=== PATIENT | male | born 1950 | race Caucasian/White ===

== ENCOUNTER 2017-05-20 02:39 | Emergency (ER) | payer MEDICAID, MEDICARE, OTHER ==
--- NOTE | 2017-05-20 03:21 | EDM.PDOC ---
<Lori Gilbert - Last Filed: 05/20/17 03:53> ED HPI GENERAL MEDICAL PROBLEM - General Chief Complaint: Gastrointestinal Problem Stated Complaint: CHEST PAIN Time Seen by Provider: 05/20/17 03:16 Source of Information: Reports: Patient, Family History Limitations: Reports: No Limitations - History of Present Illness INITIAL COMMENTS - FREE TEXT/NARRATIVE: pt arrived with a history of heartburn at about 4 thirty this afternoon. He took tums nd fenditamine He did get relief with that. He woke up about 2 am nd it had reoccurred. He repeated the meds and he arrived pain free. Onset: Today Duration: Hour(s):, Other ( Pt has had heartburn for several hours on and off. He normally is on no meds. ) Location: Reports: Chest, Abdomen Associated Symptoms: Reports: Other ( heartburn. ) denies Pain Score (Numeric/FACES): 0 - Related Data Allergies Allergy/AdvReac Type Severity Reaction Status Date / Time No Known Allergies Allergy Verified 05/20/17 02:55 Home Meds: Home Meds NK [No Known Home Meds] 05/20/17 [History] Past Medical History Gastrointestinal History: Reports: Other (See Below) Other Gastrointestinal History: IBS Musculoskeletal History: Reports: Osteoarthritis - Past Surgical History HEENT Surgical History: Reports: ROWENAIK GI Surgical History: Reports: Other (See Below) Other GI Surgeries/Procedures: tramatic umbilical hernia repair Social & Family History - Tobacco Use Smoking Status *Q: Never Smoker Second Hand Smoke Exposure: No - Caffeine Use Caffeine Use: Reports: Soda, Tea - Alcohol Use Days Per Week of Alcohol Use: 2 Number of Drinks Per Day: 1 Total Drinks Per Week: 2 - Recreational Drug Use Recreational Drug Use: No ED ROS GENERAL - Review of Systems Review Of Systems: See Below Constitutional: Reports: No Symptoms HEENT: Reports: No Symptoms Respiratory: Reports: No Symptoms Cardiovascular: Reports: No Symptoms Endocrine: Reports: No Symptoms GI/Abdominal: Reports: Abdominal Pain, Other ( hearturn type pain) : Reports: No Symptoms Musculoskeletal: Reports: No Symptoms ED EXAM, GI/ABD - Physical Exam Exam: See Below Text/Narrative:: Pt is pain free at this time. He has had pain in the upper abdoman extending to the chest. He did get sweaty. Exam Limited By: No Limitations General Appearance: Alert, Anxious Ears: Normal TMs Nose: Normal Inspection Throat/Mouth: Normal Inspection Head: Atraumatic Neck: Normal Inspection Respiratory/Chest: No Respiratory Distress Cardiovascular: Regular Rate, Rhythm, Other (pt is painfree at this time. ) GI/Abdominal Exam: Soft, Non-Tender (Male) Exam: Normal Inspection Rectal (Males) Exam: Deferred Back Exam: Normal Inspection Extremities: Normal Inspection Neurological: Alert, Oriented, Normal Cognition Course - Vital Signs Last Recorded V/S: Last Vital Signs Temp 98.1 F 05/20/17 07:26 Pulse 77 05/20/17 07:26 Resp 20 05/20/17 07:26 BP 172/102 H 05/20/17 07:26 Pulse Ox 95 05/20/17 07:26 - Orders/Labs/Meds Orders: Active Orders 24 hr Category Date Time Status EKG Documentation Completion [RC] ASDIRECTED Care 05/20/17 02:56 Active EKG Documentation Completion [RC] ASDIRECTED Care 05/20/17 07:39 Active Chest 1V Frontal [CR] Stat Exams 05/20/17 03:02 Taken Heparin Sodium/D5W [Heparin 25,000 Units in D5W 500 ML] Med 05/20/17 07:45 Active 25,000 units in 500 ml IV TITRATE Sodium Chloride 0.9% [Saline Flush] Med 05/20/17 03:48 Active 10 ml FLUSH ASDIRECTED PRN Saline Lock Insert [OM.PC] Routine Oth 05/20/17 03:48 Ordered EKG 12 Lead [EK] Routine Ther 05/20/17 02:56 Ordered EKG 12 Lead [EK] Routine Ther 05/20/17 07:39 Ordered Medication Orders Heparin Sodium/Dextrose (Heparin 25,000 Units In D5w 500 Ml) 25,000 units in 500 mls @ 20 mls/hr IV TITRATE RACHEL; 1,000 UNITS/HR PRN Reason: Protocol Last Admin: 05/20/17 07:48 Dose: 1,000 units/hr, 20 mls/hr Sodium Chloride (Saline Flush) 10 ml FLUSH ASDIRECTED PRN PRN Reason: Keep Vein Open Last Admin: 05/20/17 03:56 Dose: 10 ml Labs: Laboratory Tests 05/20/17 05/20/17 05/20/17 Range/Units 02:55 02:55 02:55 WBC 8.1 (4.5-11.0) K/uL RBC 4.45 (4.30-5.90) M/uL Hgb 14.7 (12.0-15.0) g/dL Hct 42.5 (40.0-54.0) % MCV 96 (80-98) fL MCH 33 H (27-31) pg MCHC 35 (32-36) % Plt Count 218 (150-400) K/uL Neut % (Auto) 38 (36-66) % Lymph % (Auto) 47 H (24-44) % Nuckolls % (Auto) 12 H (2-6) % Eos % (Auto) 2 (2-4) % Baso % (Auto) 1 (0-1) % Sodium 141 (140-148) mmol/L Potassium 4.0 (3.6-5.2) mmol/L Chloride 103 (100-108) mmol/L Carbon Dioxide 29 (21-32) mmol/L Anion Gap 8.8 (5.0-14.0) mmol/L BUN 21 H (7-18) mg/dL Creatinine 1.1 (0.8-1.3) mg/dL Est Cr Clr Drug Dosing 74.46 mL/min Estimated GFR (MDRD) > 60 (>60) Glucose 141 H (74-106) mg/dL Calcium 9.3 (8.5-10.1) mg/dL Total Bilirubin 0.5 (0.2-1.0) mg/dL AST 20 (15-37) U/L ALT 44 (12-78) U/L Alkaline Phosphatase 61 (46-116) U/L Creatine Kinase (39-308) U/L Troponin I 0.054 (0.000-0.056) ng/mL Total Protein 7.1 (6.4-8.2) g/dL Albumin 3.6 (3.4-5.0) g/dL Globulin 3.5 (2.3-3.5) g/dL Albumin/Globulin Ratio 1.0 L (1.2-2.2) 05/20/17 05/20/17 Range/Units 02:55 03:52 WBC (4.5-11.0) K/uL RBC (4.30-5.90) M/uL Hgb (12.0-15.0) g/dL Hct (40.0-54.0) % MCV (80-98) fL MCH (27-31) pg MCHC (32-36) % Plt Count (150-400) K/uL Neut % (Auto) (36-66) % Lymph % (Auto) (24-44) % Nuckolls % (Auto) (2-6) % Eos % (Auto) (2-4) % Baso % (Auto) (0-1) % Sodium (140-148) mmol/L Potassium (3.6-5.2) mmol/L Chloride (100-108) mmol/L Carbon Dioxide (21-32) mmol/L Anion Gap (5.0-14.0) mmol/L BUN (7-18) mg/dL Creatinine (0.8-1.3) mg/dL Est Cr Clr Drug Dosing mL/min Estimated GFR (MDRD) (>60) Glucose (74-106) mg/dL Calcium (8.5-10.1) mg/dL Total Bilirubin (0.2-1.0) mg/dL AST (15-37) U/L ALT (12-78) U/L Alkaline Phosphatase (46-116) U/L Creatine Kinase 216 (39-308) U/L Troponin I 0.143 H* (0.000-0.056) ng/mL Total Protein (6.4-8.2) g/dL Albumin (3.4-5.0) g/dL Globulin (2.3-3.5) g/dL Albumin/Globulin Ratio (1.2-2.2) Meds: Medications Generic Name Dose Route Start Last Admin Trade Name Freq PRN Reason Stop Dose Admin Heparin Sodium/Dextrose 25,000 units in 500 mls @ 20 mls/hr 05/20/17 07:45 07:48 Heparin 25,000 Units In D5w 500 Ml IV 1,000 units/hr TITRATE RACHEL 20 mls/hr Protocol Administration 1,000 UNITS/HR Sodium Chloride 10 ml 05/20/17 03:48 05/20/17 03:56 Saline Flush FLUSH 10 ml ASDIRECTED PRN Administration Keep Vein Open Discontinued Medications Generic Name Dose Route Start Last Admin Trade Name Freq PRN Reason Stop Dose Admin Aspirin 324 mg 05/20/17 07:28 05/20/17 07:32 Aspirin PO 05/20/17 07:29 324 mg ONETIME ONE Administration Heparin Sodium (Porcine) 5,000 units 05/20/17 07:40 05/20/17 07:45 Heparin Sodium IVPUSH 05/20/17 07:41 5,000 units ONETIME ONE Administration Pantoprazole Sodium 40 mg 05/20/17 03:31 05/20/17 03:49 Protonix PO 05/20/17 03:32 40 mg DAILY ONE Administration - Re-Assessments/Exams Free Text/Narrative Re-Assessment/Exam: 05/20/17 03:32 pt has a borderline trop at.o54. He is painfree at this point. He is not sob. 05/20/17 03:53 will plan to have a repeat tropon done at 6 forty five, Departure - Departure Disposition: DC/Tfer to Other Clinical Impression: Non-STEMI (non-ST elevated myocardial infarction) - Discharge Information Referrals: PCP,None [Primary Care Provider] - Forms: ED Department Discharge Care Plan Goals: Patient will be transferred to [place] for cardiology evaluation and care. He will likely need an nonurgent angiography. - My Orders Last 24 Hours: My Active Orders 05/20/17 07:39 EKG Documentation Completion [RC] ASDIRECTED EKG 12 Lead [EK] Routine 05/20/17 07:45 Heparin Sodium/D5W [Heparin 25,000 Units in D5W 500 ML] 25,000 units in 500 ml IV TITRATE - Assessment/Plan Last 24 Hours: My Active Orders 05/20/17 07:39 EKG Documentation Completion [RC] ASDIRECTED EKG 12 Lead [EK] Routine 05/20/17 07:45 Heparin Sodium/D5W [Heparin 25,000 Units in D5W 500 ML] 25,000 units in 500 ml IV TITRATE <Gil Parikh - Last Filed: 05/20/17 08:13> Course - Re-Assessments/Exams Free Text/Narrative Re-Assessment/Exam: 05/20/17 07:57 Patient initially seen, evaluated and treated by Dr. Gilbert. Care was turned over pending a second troponin. Although the patient's symptoms didn't recur, the troponin returned double. Went from 0.05 to .14. He was given 324 mg of aspirin, a repeat EKG was still normal. He was heparinized and transferred to [place], accepted by Dr. Joiner of the hospitalist service. 05/20/17 08:00 Patient was heparinized with a 5000 unit bolus, 1000 unit per hour drip which she will receive in route to [place] 05/20/17 08:01 Departure - Departure Time of Disposition: 08:13 Condition: Good
[2017-05-20] MEDS ORDERED: Pantoprazole 40 MG Tab.CR PO ONE (03:31)
[2017-05-20] MEDS ORDERED: Sodium Chloride 0.9% 10 ML Syringe FLUSH PRN (03:48)
[2017-05-20] MEDS ORDERED: Aspirin 81 MG Tab.Chew PO ONE (07:28)
[2017-05-20] MEDS ORDERED: Heparin Sodium 5,000 Units/ML Vial IVPUSH ONE (07:40)
[2017-05-20] MEDS ORDERED: Heparin Sodium/D5W 25,000 UNITS/500 ML BAG IV SCH (07:45)
--- NOTE | 2017-05-20 08:29 | CR ---
Chest 1V Frontal HISTORY: heartburn--chest pain COMPARISON: None FINDINGS: Portable chest, 0317 hours. Lungs appear clear and normally aerated. Cardiomediastinal silhouette is within normal limits. No vas cular redistribution or pleural fluid can be seen. Bony structures and soft tissues are unremarkable. IMPRESSION: No acute chest abnormality is identified.
== END 2017-05-20 08:26 | disposition other institution (70) ==
LOC: JP.ED 02:39
DX: I21.4 Non-ST elevation (NSTEMI) myocardial infarction (principal)
CPT/HCPCS: 36415; 71010; 80053; 82550; 84484; 85025; 93005; 93010; 99285; A9270; J1644; J7050